=== PATIENT | male | born 1960 | race Caucasian/White ===

== ENCOUNTER 2019-03-10 05:51 | Outpatient (CLI) | payer BC ==
[~2019-03-10] VITALS: Ht 188 cm; Wt 88.5 kg
[2019-03-10] MEDS ORDERED: ESOM20TA PO (15:24)
== END 2019-03-10 15:28 | disposition home or self-care (01) ==
LOC: PREOP 05:51
PROVIDERS: ATTEND Surgery
DX: Z01.818 Encounter for other preprocedural examination (principal)

== ENCOUNTER 2019-03-14 11:35 | Day surgery (SDC) | payer BC ==
[~2019-03-14] VITALS: Ht 188 cm; Wt 88.5 kg
[~2019-03-14 11:35] MED LIST: ESOM20TA PO
--- NOTE | 2019-03-14 11:43 | Conscious Sedation/ASA ---
Conscious Sedation Pre-Proced Time 11:45 ASA Score 2 For ASA 3 and 4: Consider anesthesia and medical clearance. Also, for patients with a history of failed moderate sedation consider anesthesia. Airway Lungs Heart ASA score ASA 1: a normal healthy patient ASA 2: a patient with a mild systemic disease (mid diabetes, controlled hypertension, obesity ASA 3: a patient with a severe systemic disease that limits activity (angina, COPD, prior Myocardial infarction) ASA 4: a patient with an incapacitating disease that is a constant threat to life (CHF, renal failure) ASA 5: a moribund patient not expected to survive 24 hrs. (ruptured aneurysm) ASA 6: a declared brain- patient whose organs are being harvested. For emergent operations, add the letter E after the classification Mallampati Classification Grade 2 Sedation Plan Analgesia, Amnesia, Plan communicated to team members, Discussed options with patient/fam, Discussed risks with patient/fam The patient is an appropriate candidate to undergo the planned procedure, sedation, and anesthesia. The patient immediately re-assessed prior to indication. AWA MO MD Mar 14, 2019 11:43
--- NOTE | 2019-03-14 11:44 | Progress Note-Pre Operative ---
Pre-Operative Progress Note H&P Reviewed The H&P was reviewed, patient examined and no changes noted. Date Seen by Provider: Mar 14, 2019 Time Seen by Provider: 11:45 Date H&P Reviewed: Mar 14, 2019 Time H&P Reviewed: 11:45 Pre-Operative Diagnosis: screening o AWA MO MD Mar 14, 2019 11:44
[2019-03-14] MEDS ORDERED: ACETAMINOPHEN 325 MG TABLET PO PRN (11:45)
[2019-03-14] MEDS ORDERED: morphine INJ 10 MG/ML 1ML (SYR OR VIAL) IVP PRN ×2 (11:45)
[2019-03-14] MEDS ORDERED: HYDROcodone/APAP 5 MG/325 MG (LORTAB) TAB PO PRN (11:45)
[2019-03-14] MEDS ORDERED: ONDANSETRON 4 MG/2 ML (SDV) Z0FRAN IVP PRN (11:45)
--- NOTE | 2019-03-14 11:46 | Discharge Inst-Surgical ---
D/C Lap Instructions-CHELY Follow Up Appt in 2 weeks Activity as tolerated High Fiber Diet 25g or more per day Avoid Alcohol, Caffeine, Spicy [place] and Acid foods. Drink 64 fluid oz or more of fluids per day. Symptoms to Report: Fever over 101 degree F, Nausea/Vomiting If any problems/questions: Contact your physician or go to Emergency Room AWA MO MD Mar 14, 2019 11:46
[2019-03-14 11:50] VITALS: BP 121/80
[2019-03-14] MEDS ORDERED: NS IV 500 ML 500 ML ONE (11:59)
[2019-03-14] MEDS ORDERED: NS IV 500 ML 500 ML IV PRN (12:01)
[2019-03-14] MEDS ORDERED: MIDAZOLAM 2 MG/2 ML (VERSED) VIAL IVP ONE (12:15)
[2019-03-14] MEDS ORDERED: fentaNYL INJECTION 100 MCG/2 ML AMP IVP ONE (12:15)
[2019-03-14] MEDS ORDERED: LIDOCAINE JELLY 2% 6 ML SYRINGE MM PRN (12:15)
[2019-03-14] MEDS ORDERED: fentaNYL INJECTION 100 MCG/2 ML AMP ONE ×2 (12:31)
[2019-03-14] MEDS ORDERED: MIDAZOLAM 2 MG/2 ML (VERSED) VIAL ONE ×4 (12:31)
[2019-03-14] MEDS ORDERED: LIDOCAINE JELLY 2% 6 ML SYRINGE ONE (12:34)
[2019-03-14 13:20] VITALS: BP 114/65
[2019-03-14] MEDS ORDERED: ONDANSETRON 4 MG/2 ML (SDV) Z0FRAN ONE (13:20)
--- NOTE | 2019-03-14 13:45 | Progress Note-Post Operative ---
Post-Operative Progess Note Surgeon (s)/Slab Lifting Engineer (s) Surgeon AWA MO MD Slab Lifting Engineer: none Pre-Operative Diagnosis screening colo Post-Operative Diagnosis moderate sigmoid and descending colonic diverticulosis. Procedure & Operative Findings Date of Procedure 03/14/19 Procedure Performed/Findings colonoscopy Anesthesia Type cs Estimated Blood Loss Estimated blood loss (mL): minimal Specimens/Packing Specimens Removed none AWA MO MD Mar 14, 2019 13:45
[2019-03-14 14:20] VITALS: BP 128/71
[2019-03-14 14:55] VITALS: BP 128/71
--- NOTE | 2019-03-14 20:24 | OPERATIVE REPORT ---
DATE OF SERVICE: 03/14/2019 ATTENDING PRIMARY CARE PHYSICIAN: Dr. Shade Prince. PREOPERATIVE DIAGNOSIS: Screening colonoscopy. POSTOPERATIVE DIAGNOSES: Moderate sigmoid and descending colonic diverticulosis. PROCEDURE: Colonoscopy. SURGEON: Awa Mo MD. ANESTHESIA: Conscious sedation. ESTIMATED BLOOD LOSS: Minimal. FINDINGS: No significant hemorrhoids identified. Prostate gland was palpable and appeared normal. There was a moderate diverticulosis of the sigmoid as well as extending into the descending colon. DISPOSITION: The patient tolerated the procedure well. INDICATIONS: The patient is a 58-year-old male in need of a screening colonoscopy. He has not had a colonoscopy up to this point in his life. He reports that he is doing well for the most part and does not report any major issues of diarrhea nor constipation as well as no red blood per rectum nor any dark tarry stools. He also does not report any family history of colon cancer. DESCRIPTION OF PROCEDURE: The patient was brought to the endoscopy suite, laid in left lateral decubitus position. After adequate IV pain and sedating medications and conscious sedation anesthesia, a digital rectal examination was performed. No significant hemorrhoids identified. Normal sphincter tone was felt. There were no palpable masses. Prostate gland was palpable and appeared normal. The endoscope was then intubated to the anus and rectum gently insufflated. The endoscope was then advanced through the valves of [place] of the rectum with no polyps or any neoplasms identified. The endoscope was advanced to the sigmoid colon where a moderate sigmoid diverticulosis identified. There were no mucosal inflammatory changes to indicate any active diverticulitis. This diverticulosis did extend through the descending colon as well. The endoscope was then advanced to the remainder of the transverse, ascending colon to the cecum. These segments were normal. There were no polyps or any neoplasms identified throughout the colon or rectum. The endoscope was then slowly withdrawn while taking a second look and suctioning of residual air with no additional findings. The patient tolerated the procedure well. We will recommend conservative management with high fiber diet with at least 30 grams of fiber daily as well as significant amounts of water to promote soft stools on a daily basis and to prevent any further propagation or complications of diverticulosis. No polyps were identified and he does not need another colonoscopy for another 10 years; however, sooner if he becomes symptomatic. Job ID: [id number] DocumentID: [id number] Dictated Date: 03/14/2019 13:04:25 Cage Shift Manager Date: 03/14/2019 20:23:14 Dictated By: AWA MO MD
== END 2019-03-14 15:00 | disposition home or self-care (01) ==
LOC: ENDO 11:35
PROVIDERS: ATTEND Surgery
DX: Z12.11 Encounter for screening for malignant neoplasm of colon (principal); K57.30 Diverticulosis of large intestine without perforation or abscess without bleeding; K21.9 Gastro-esophageal reflux disease without esophagitis; Z80.1 Family history of malignant neoplasm of trachea, bronchus and lung; Z79.899 Other long term (current) drug therapy